=== PATIENT | male | born 1950 | race Caucasian/White ===

== ENCOUNTER → 2019-02-16 | Day surgery (SDC) | payer OTHER ==
[~2019-02-16] VITALS: Ht 182.9 cm; Wt 111.1 kg
[~2019-02-16] MED LIST: ASPIR 8181 MG; AVALIDE 300-121 EACH; BENICAR20 MG; COREG CR20 MG; DETROL LA4 MG; FENOFIBRATE54 MG; FOLIC ACID1 MG; LANTUS100 U/ML; MAXIMUM D310000 UNIT; METFORMIN HYDRO25 GM; NEURONTIN600 MG; NOVOLOG100 U/M1; TAMS0.4C
== END | disposition home or self-care (01) ==
LOC: ER 13:41 → CIR.AMB 19:15
DX: G91.8 Other hydrocephalus (principal)

== ENCOUNTER 2024-08-11 11:54 | Emergency (ER) | payer OTHER ==
[~2024-08-11] VITALS: Ht 182.9 cm; Wt 97.5 kg
[~2024-08-11 11:54] MED LIST changes: +CENTRUM ADULTS1 EACH PO; +ELIQUIS5 MG PO; +INTEGRA PLUS C1 EACH PO; +LIDODERM1 EACH TOP; +MIDODRINE HCL5 MG PO; +PROTEINEX-18 LI30 ML PO
[2024-08-11] MEDS ORDERED: CLONIDINE HCL 0.1 MG TABLET PO STA (12:40)
[2024-08-11] MEDS ORDERED: 0.9 % SODIUM CHLORIDE 1,000 ML IV STA (12:40)
[2024-08-11] MEDS ORDERED: CLONIDINE HCL 0.1 MG TABLET PO ONE (13:39)
[2024-08-11 13:42] LABS: HEMATOCRIT 45.7 % (39.0-48.0); HEMOGLOBIN 15.6 g/dL (13-16.00); MEAN CELL VOLUME 91.6 fL (80.0-100.00); MEAN CORPUSCULAR HEMOGLOBIN 31.2 pg (27.00-32.0); MEAN CORPUSCULAR HGB CONC 34.1 g/dl (32.0-36.0); PLATELET COUNT 348 K/uL (150-450); RED BLOOD COUNT 4.99 M/uL (4.00-6.00); RED CELL DISTRIBUTION WIDTH 14.9 % (11.5-14.5)
[2024-08-11 14:50] LABS: ALBUMIN 3.8 gm/dL (3.4-5.0); BILIRUBIN TOTAL 0.7 mg/dL (0.3-1.2); BILIRUBIN,CONJUGATED 0.21 mg/dL (0.0-0.2); BILIRUBIN,UNCONJUGATED 0.49 mg/dL (0.0-0.6); CREATININE SERUM 0.92 mg/dL (0.70-1.30); GFR 80.42; POTASSIUM 3.98 mEq/L (3.5-5.1); TOTAL PROTEIN 7.4 gm/dL (6.4-8.2)
[2024-08-11 17:32] LABS: PH,URINE 6.5 (5.0-8.0); URINE APPEARANCE Turbid; URINE BILIRRUBIN Negative (NEGATIVE); URINE BLOOD Large; URINE COLOR Yellow; URINE GLUCOSE Negative (NEGATIVE); URINE KETONE Negative (NEGATIVE); URINE LEUKOCYTE Large; URINE NITRATE Positive
[2024-08-11 17:33] LABS: URINE EPITHELIAL CELLS 18.3 uL (0.0-38.8); URINE RBC 1230.4 uL (0.0-20.8)
[2024-08-11 17:49] LABS: URINE BACTERIA > 9821.5 uL (0.0-1933); URINE CAST > 21.83 uL (0.0-1.40); URINE PROTEIN 300 (NEGATIVE); URINE WBC > 5548.3 uL (0.0-23.2)
[2024-08-11] MEDS ORDERED: PROBIOTIC1 EAC2 PO (18:04)
[2024-08-11] MEDS ORDERED: PEPCID AC20 MG PO (18:04)
[2024-08-11] MEDS ORDERED: BACTRIM DS TAB1 EACH PO (18:04)
[2024-08-11] MEDS ORDERED: CIPROFLOXACIN HCL 500 MG TABLET PO ONE (18:15)
== END 2024-08-11 21:55 | disposition home or self-care (01) ==
LOC: ER 11:54
PROVIDERS: General Practice
DX: I10 Essential (primary) hypertension (principal); F32.89 Other specified depressive episodes; I49.8 Other specified cardiac arrhythmias; E78.00 Pure hypercholesterolemia, unspecified; Z88.0 Allergy status to penicillin; N39.0 Urinary tract infection, site not specified
CPT/HCPCS: 36415; 71045; 93005; 96365; 96366; 99283; J7030

== ENCOUNTER 2024-08-19 09:01 | Inpatient (IN) | payer OTHER ==
[~2024-08-19] VITALS: Ht 182.9 cm; Wt 99.8 kg
[~2024-08-19 09:01] MED LIST changes: +BACTRIM DS TAB1 EACH PO; +PEPCID AC20 MG PO; +PROBIOTIC1 EAC2 PO
[2024-08-19 10:04] LABS: HEMATOCRIT 46.7 % (39.0-48.0); HEMOGLOBIN 15.9 g/dL (13-16.00); MEAN CELL VOLUME 91.6 fL (80.0-100.00); MEAN CORPUSCULAR HEMOGLOBIN 31.2 pg (27.00-32.0); PLATELET COUNT 434 K/uL (150-450); RED CELL DISTRIBUTION WIDTH 14.9 % (11.5-14.5)
[2024-08-19 10:18] LABS: ALBUMIN 3.8 gm/dL (3.4-5.0); BILIRUBIN TOTAL 0.79 mg/dL (0.3-1.2); CALCIUM 10.4 mg/dL (8.5-10.1); CREATININE SERUM 1.44 mg/dL (0.70-1.30); GFR 47.95; GLOBULINA 4.3 G/DL (2.4-3.5); POTASSIUM 4.12 mEq/L (3.5-5.1); TOTAL PROTEIN 8.1 gm/dL (6.4-8.2)
[2024-08-19 10:27] LABS: PH,URINE 7.5 (5.0-8.0); URINE APPEARANCE Cloudy; URINE BILIRRUBIN Negative (NEGATIVE); URINE BLOOD Large; URINE COLOR Yellow; URINE GLUCOSE Negative (NEGATIVE); URINE KETONE Negative (NEGATIVE); URINE LEUKOCYTE Large; URINE NITRATE Negative
[2024-08-19 10:29] LABS: URINE BACTERIA 751.5 uL (0.0-1933); URINE EPITHELIAL CELLS 4.4 uL (0.0-38.8); URINE RBC 2047.3 uL (0.0-20.8); URINE WBC 311.8 uL (0.0-23.2)
[2024-08-19 10:35] LABS: URINE CAST 0.88 uL (0.0-1.40); URINE PROTEIN 300 (NEGATIVE)
[2024-08-19] MEDS ORDERED: levoFLOXacin IN DEXTROSE 5 % 500MG/100ML PIGGYBAG IV ONE ×3 (10:45→11:27)
[2024-08-19] MEDS ORDERED: FAMOtidine 10 MG/ML (4ML VIAL) IV ONE (11:00)
[2024-08-19] MEDS ORDERED: 0.9 % SODIUM CHLORIDE 1,000 ML IV ONE (11:00)
[2024-08-19] MEDS ORDERED: FAMOTIDINE/PF 20 MG/2 ML VIAL ONE (11:28)
[2024-08-19 15:03] LABS: INR 1.3; PROTHROMBIN TIME 13.9 SECONDS (9.0-11.5)
[2024-08-19] MEDS ORDERED: SIMVASTATIN 20 MG TABLET PO SCH (17:30)
[2024-08-19] MEDS ORDERED: APIXABAN 5 MG TABLET PO SCH (17:31)
[2024-08-19] MEDS ORDERED: MIDODRINE HCL 5 MG TABLET PO SCH (17:32)
[2024-08-19] MEDS ORDERED: RINGERS SOLUTION,LACTATED 1,000 ML IV SCH (17:45)
[2024-08-19 20:48] VITALS: BP 139/80; O2SAT 93
[2024-08-20 01:49] VITALS: BP 121/70; O2SAT 97
[2024-08-20 07:52] LABS: HEMATOCRIT 38.8 % (39.0-48.0); HEMOGLOBIN 13.6 g/dL (13-16.00); MEAN CELL VOLUME 91.9 fL (80.0-100.00); MEAN CORPUSCULAR HEMOGLOBIN 32.2 pg (27.00-32.0); PLATELET COUNT 376 K/uL (150-450); RED BLOOD COUNT 4.22 M/uL (4.00-6.00); RED CELL DISTRIBUTION WIDTH 14.7 % (11.5-14.5)
[2024-08-20 08:00] VITALS: BP 143/85; O2SAT 94
[2024-08-20 08:21] LABS: ALBUMIN 3.3 gm/dL (3.4-5.0); BILIRUBIN TOTAL 0.94 mg/dL (0.3-1.2); CALCIUM 9.7 mg/dL (8.5-10.1); CREATININE SERUM 1.1 mg/dL (0.70-1.30); GFR 65.44; GLOBULINA 3.2 G/DL (2.4-3.5); PHOSPHOROUS 3.6 mg/dL (2.5-4.9); POTASSIUM 4.52 mEq/L (3.5-5.1); TOTAL PROTEIN 6.5 gm/dL (6.4-8.2)
[2024-08-20] MEDS ORDERED: CYANOCOBALAMIN (VITAMIN B-12) 1,000 MCG TABLET PO SCH (09:00)
[2024-08-20] MEDS ORDERED: IRON FUM,PS/FOLIC/BCOMP,C NO.9 1 CAP CAPSULE PO SCH (09:00)
[2024-08-20] MEDS ORDERED: levoFLOXacin IN DEXTROSE 5 % 100 ML IV SCH (09:00)
[2024-08-20] MEDS ORDERED: MULTIVIT-MIN/IRON FUM/FOLIC AC 1 TAB TABLET PO SCH (09:00)
[2024-08-20] MEDS ORDERED: PANTOPRAZOLE SODIUM 40 MG TABLET.DR PO SCH (09:00)
[2024-08-20 17:48] VITALS: BP 127/78; O2SAT 94
[2024-08-21 03:10] VITALS: BP 145/70; O2SAT 95
[2024-08-21 09:10] VITALS: BP 154/77; O2SAT 98
[2024-08-21 17:28] VITALS: BP 134/74; O2SAT 96
[2024-08-22 03:11] VITALS: BP 160/89; O2SAT 95
[2024-08-22] MEDS ORDERED: CEFTRIAXONE SODIUM 2,000 MG VIAL IV SCH (09:00)
[2024-08-22 11:25] VITALS: BP 158/85
[2024-08-22 18:50] VITALS: BP 159/77
[2024-08-23 02:58] VITALS: BP 150/92; O2SAT 94
[2024-08-23 08:50] LABS: HEMATOCRIT 38.1 % (39.0-48.0); HEMOGLOBIN 12.8 g/dL (13-16.00); MEAN CELL VOLUME 93.4 fL (80.0-100.00); MEAN CORPUSCULAR HEMOGLOBIN 31.3 pg (27.00-32.0); MEAN CORPUSCULAR HGB CONC 33.5 g/dl (32.0-36.0); PLATELET COUNT 325 K/uL (150-450); RED BLOOD COUNT 4.08 M/uL (4.00-6.00); RED CELL DISTRIBUTION WIDTH 14.9 % (11.5-14.5)
[2024-08-23 09:46] VITALS: BP 146/82; O2SAT 96
[2024-08-23] MEDS ORDERED: CEFDINIR300 MG PO (10:37)
[2024-08-23] MEDS ORDERED: INTESTINEX680 M1 PO (10:37)
[2024-08-23] MEDS ORDERED: PANTOPRAZOLE SO20 MG PO (10:38)
== END 2024-08-23 17:29 | disposition home or self-care (01) | DRG 690 ==
LOC: ER 09:01 → MEDJ 18:37
PROVIDERS: General Practice; ADMIT Internal Medicine; ATTEND Internal Medicine
PROC: BW21ZZZ Computerized Tomography (CT Scan) of Abdomen and Pelvis (ICD-10-PCS; principal; 2024-08-19)
DX: N39.0 Urinary tract infection, site not specified (principal); N17.9 Acute kidney failure, unspecified; N99.512 Cystostomy malfunction; B96.4 Proteus (mirabilis) (morganii) as the cause of diseases classified elsewhere; T83.511A Infection and inflammatory reaction due to indwelling urethral catheter, initial encounter; Z74.01 Bed confinement status; Z79.4 Long term (current) use of insulin; D64.9 Anemia, unspecified; E78.5 Hyperlipidemia, unspecified; E11.22 Type 2 diabetes mellitus with diabetic chronic kidney disease; I12.9 Hypertensive chronic kidney disease with stage 1 through stage 4 chronic kidney disease, or unspecified chronic kidney disease; N18.9 Chronic kidney disease, unspecified